=== PATIENT | female | born 1955 | race Caucasian/White ===

== ENCOUNTER 2017-02-10 10:59 | Emergency (ER) | payer MEDICARE, OTHER ==
[2017-02-10] MEDS ORDERED: FENTANYL CITRATE INJ/PF 100 MCG/2 ML AMPUL IV ONE ×2 (12:30→13:47)
--- NOTE | 2017-02-10 13:17 | RADIOLOGY REPORT (SQ) ---
EXAM DESCRIPTION: WRIST LEFT 3 VIEWS COMPLETED DATE/TIME: 02/10/2017 1:05 pm REASON FOR STUDY: fell, wrist pain COMPARISON: None. NUMBER OF VIEWS: Three views. TECHNIQUE: AP, lateral, and oblique radiographic images acquired of the left wrist. LIMITATIONS: None. FINDINGS: MINERALIZATION: Osteopenia. BONES: There is a comminuted, impacted fracture of the distal radius with mild volar angulation. SOFT TISSUES: No soft tissue swelling. No foreign body. OTHER: No other significant finding. IMPRESSION: Radial fracture. TECHNICAL DOCUMENTATION: JOB ID: [id number] [employer]- All Rights Reserved
--- NOTE | 2017-02-10 13:21 | ER Document Report ---
HPI - HPI Patient complains to provider of: left wrist pain Onset: Just prior to arrival Onset/Duration: Sudden Quality of pain: Achy Severity: Moderate Pain Level: 3 Context: Patient presents to the emergency department with left wrist pain. FOOSH injury. Patient reports she fell going to the bathroom. She reports she did not get dizzy, she just slipped and fell. Patient was brought in by EMS and received 40 mcg of fentanyl. Reports denies past medical history of injury to the wrist. Associated Symptoms: None Exacerbated by: Movement Relieved by: Denies Similar symptoms previously: No Recently seen / treated by doctor: No - DERM Skin Color: Normal Past Medical History - General Information source: Patient - Social History Smoking Status: Never Smoker Cigarette use (# per day): No Frequency of alcohol use: None Drug Abuse: None Lives with: Family Family History: Reviewed & Not Pertinent Patient has suicidal ideation: No Patient has homicidal ideation: No - Medical History Medical History: Other - lupus Pulmonary Medical History: Reports: Hx Pneumonia Endocrine Medical History: Reports: Hx Hypothyroidism Renal/ Medical History: Denies: Hx Peritoneal Dialysis Surgical Hx: Negative Vertical Provider Document - CONSTITUTIONAL Agree With Documented VS: Yes Exam Limitations: No Limitations General Appearance: WD/WN, Mild Distress - winces when wrist palpated - INFECTION CONTROL TRAVEL OUTSIDE OF THE [place] IN LAST 30 DAYS: No - HEENT HEENT: Atraumatic, Normocephalic - NECK Neck: Supple - RESPIRATORY Respiratory: No Respiratory Distress O2 Sat by Pulse Oximetry: 98 - CARDIOVASCULAR Cardiovascular: Regular Rate - MUSCULOSKELETAL/EXTREMETIES Musculoskeletal/Extremeties: Tender - left wrist with swelling, ttp, good radial pulse, brisk cap refill Course - Re-evaluation Re-evalutation: 02/10/17 13:42 Patient instructed on fracture, plan of care,splint Patient reports that when she had carpal tunnel surgery done in August she was able to take Tylenol with codeine. Patient orthopedic contacted [facility] and appointment arranged for her. - Vital Signs Vital signs: Temp Pulse Resp BP Pulse Ox 98.1 F 67 16 147/69 H 98 02/10/17 11:09 02/10/17 11:09 02/10/17 11:09 02/10/17 11:09 02/10/17 11:09 - Diagnostic Test Radiology reviewed: Image reviewed, Reports reviewed - impacted fracture distal radius with mild volar angulation Procedures - Immobilization Left Wrist Immobilizer type: Sugar tong, Sling Performed by: PCT Post-Proc Neuro Vasc Exam: Unchanged from pre-exam Alignment checked and good: Yes Discharge - Discharge Clinical Impression: Elevated blood pressure reading Left wrist injury Qualifiers: Encounter type: initial encounter Qualified Code(s): S69.92XA - Unspecified injury of left wrist, hand and finger(s), initial encounter Radial fracture Qualifiers: Encounter type: initial encounter Radius location: distal Fracture type: closed Fracture morphology: unspecified fracture morphology Disposition: HOME, SELF-CARE Instructions: Splint Pending Casting ([facility]), Fractured Radius ([facility]), Acetaminophen with Codeine ([facility]) Additional Instructions: *You have been evaluated for left wrist injury, radial fracture *Maintain the splint *Rest/Ice/Elevate your wrist *Follow up with [facility] February 13 at 1:00 pm *Take medication as prescribed for pain *Return to ED for worsening condition, changes, needs Prescriptions: Acetaminophen with Codeine [Tylenol #3 Tablet] 1 each PO Q4HP PRN #30 tablet PRN Reason: Referrals: ROZ FRANCOIS MD [Primary Care Provider] - Follow up in 1 week [facility] [Provider Group] - 02/13/17 1:00 pm
[2017-02-10] MEDS ORDERED: ONDANSETRON ODT 4 MG TAB (6 TAB/DSPK) PO PRN (13:47)
[2017-02-10 16:07] VITALS: BP 148/89
== END 2017-02-10 15:13 | disposition home or self-care (01) ==
LOC: ER 10:59
PROC: 2W3DX1Z Immobilization of Left Lower Arm using Splint (ICD-10-PCS; principal; 2017-02-10)
DX: S52.92XA Unspecified fracture of left forearm, initial encounter for closed fracture (principal); S62.92XA Unspecified fracture of left hand, initial encounter for closed fracture; S62.609A Fracture of unspecified phalanx of unspecified finger, initial encounter for closed fracture; M25.532 Pain in left wrist; W01.0XXA Fall on same level from slipping, tripping and stumbling without subsequent striking against object, initial encounter
CPT/HCPCS: 29125; 96376; 99283; 96374; 73110; J3010; A9270

== ENCOUNTER 2018-06-28 19:33 | Observation (INO) | payer MEDICARE, OTHER ==
--- NOTE | 2018-06-28 20:31 | RADIOLOGY REPORT (SQ) ---
EXAM DESCRIPTION: ANKLE LEFT COMPLETE COMPLETED DATE/TIME: 06/28/2018 8:21 pm REASON FOR STUDY: fall injury with ? deformity COMPARISON: None. EXAM PARAMETERS: NUMBER OF VIEWS: Three views. TECHNIQUE: AP, lateral and oblique radiographic images acquired of the left ankle. LIMITATIONS: None. FINDINGS: MINERALIZATION: Normal. BONES: Transverse Nondisplaced fracture of the distal fibula- lower lateral malleolus. No other frac ture or dislocation. No worrisome bone lesions. JOINTS: No effusion. SOFT TISSUES: Moderate soft tissue swelling. No radiopaque foreign body. OTHER: No other significant finding. IMPRESSION: Transverse Nondisplaced fracture of the distal fibula- lower lateral malleolus. No othe r fracture or dislocation. TECHNICAL DOCUMENTATION: JOB ID: [id number] [place]-72 2010 [employer]- All Rights Reserved Reading location - IP/workstation name: [email or web address]
--- NOTE | 2018-06-28 20:34 | RADIOLOGY REPORT (SQ) ---
EXAM DESCRIPTION: KNEE RIGHT 4 VIEWS COMPLETED DATE/TIME: 06/28/2018 8:21 pm REASON FOR STUDY: fall injury with swelling COMPARISON: None. EXAM PARAMETERS: NUMBER OF VIEWS: Four views. TECHNIQUE: AP, lateral and both oblique radiographic images acquired of the right knee. LIMITATIONS: None. FINDINGS: MINERALIZATION: Osteopenia. BONES: Possible nondisplaced longitudinal fracture in the lateral body of the patella. No other frac ture or dislocation. No worrisome bone lesions. JOINTS: Small effusion. SOFT TISSUES: No significant soft tissue swelling. No radiopaque foreign body. OTHER: No other significant finding. IMPRESSION: Possible nondisplaced longitudinal fracture in the lateral body of the patella. TECHNICAL DOCUMENTATION: JOB ID: [id number]-72 2010 [employer]- All Rights Reserved Reading location - IP/workstation name: [email or web address]
[2018-06-28] MEDS ORDERED: FENTANYL CITRATE INJ/PF 100 MCG/2 ML AMPUL IV ONE (21:02)
[2018-06-28] MEDS ORDERED: ONDANSETRON HCL INJ/PF 4 MG/2 ML SDV IV PRN (21:03)
--- NOTE | 2018-06-28 21:17 | ER Document Report ---
ED General - General Mode of Arrival: Medic Information source: Patient, Relative - Daughter TRAVEL OUTSIDE OF THE [place] IN LAST 30 DAYS: No - HPI Onset: Just prior to arrival Onset/Duration: Sudden Quality of pain: Sharp, Throbbing <RENEE CRYSTAL - Last Filed: 06/29/18 00:16> <SARAH BRAVOIN - Last Filed: 06/29/18 00:48> - General Chief Complaint: Fall Injury Stated Complaint: KNEE PAIN Time Seen by Provider: 06/28/18 19:57 - HPI Notes: 53-year-old female brought in by ambulance after tripping and falling brought in with positive deformity of her left lateral ankle and her right knee. She is complaining of severe pain in her right knee her left ankle over the fibula. Patient is unable to bear weight on either extremity. She did not hit her head and there was no loss of consciousness. Enroute she was given 100 mcg x1 by the medics and Zofran 4 mg x1. (RENEE CRYSTAL) - Related Data Allergies/Adverse Reactions: hydrochlorothiazide [Hydrochlorothiazide] Allergy (Verified 06/28/18 20:11) morphine [Morphine] Allergy (Verified 06/28/18 20:11) Penicillins Allergy (Verified 06/28/18 20:11) rofecoxib [From Vioxx] Allergy (Verified 06/28/18 20:11) Sulfa (Sulfonamide Antibiotics) Allergy (Verified 06/28/18 20:11) Past Medical History - General Information source: Patient - Social History Smoking Status: Never Smoker Frequency of alcohol use: None Drug Abuse: None Family History: Reviewed & Not Pertinent Patient has suicidal ideation: No Patient has homicidal ideation: No - Past Medical History Cardiac Medical History: Reports: Hx Hypertension Pulmonary Medical History: Reports: Hx Asthma, Hx COPD, Hx Pneumonia Endocrine Medical History: Reports: Hx Hypothyroidism Renal/ Medical History: Denies: Hx Peritoneal Dialysis Musculoskeletal Medical History: Reports Hx Arthritis - RA Past Surgical History: Reports: Hx Hysterectomy, Hx Orthopedic Surgery - L arm <RENEE CRYSTAL - Last Filed: 06/29/18 00:16> Review of Systems - Review of Systems Constitutional: Weakness. denies: Chills, Diaphoresis EENT: No symptoms reported Cardiovascular: No symptoms reported Respiratory: No symptoms reported Gastrointestinal: No symptoms reported Musculoskeletal: Deformity, Leg swelling <RENEE CRYSTAL - Last Filed: 06/29/18 00:16> Physical Exam - General General appearance: Appears well, Anxious In distress: Mild - HEENT Head: Normocephalic Eyes: Normal Conjunctiva: Normal Extraocular movements intact: Yes - Respiratory Respiratory status: No respiratory distress Chest status: Nontender Breath sounds: Normal Chest palpation: Normal - Cardiovascular Rhythm: Regular Heart sounds: Normal auscultation, S1 appreciated, S2 appreciated Murmur: Yes Systolic murmur grade 1-6: 2 Pulses: Normal: Posterior tibial - Bilateral 2+, Dorsalis pedis - Bilateral 2+ - Abdominal Inspection: Normal Distension: No distension Tenderness: Nontender - Extremities General lower extremity: Tender - Exquisitely tender to palpation R knee around patella. Positive TTP L lateral malleolus Knee: Tender, Abrasion, Pain with ROM, Tender joint line - R knee TTP, abrasion noted anterolateral, severe pain with ROM, cannot bear weight, Unable to bear weight. No: Popliteal fossa tender Calf: Normal Ankle: Tender, Deformity, Edema, Limited ROM, Unable to bear weight - L ankle TTP lateral malleolus, edema, mild deformity Foot: Normal - Neurological Sensory: Altered light touch - Pt with normal sensation to light touch R lower extremity, decreased sensation to light touch L lower extremity. <RENEE CRYSTAL - Last Filed: 06/29/18 00:16> - Vital signs Vitals: Temp Pulse Resp BP Pulse Ox 98.2 F 72 24 H 142/89 H 100 06/28/18 19:34 06/28/18 19:34 06/28/18 19:34 06/28/18 19:34 06/28/18 19:34 Course - Laboratory Result Diagrams: 06/28/18 22:55 06/28/18 22:55 <RENEE CRYSTAL - Last Filed: 06/29/18 00:16> - Laboratory Result Diagrams: 06/28/18 22:55 06/28/18 22:55 <MADISON BRAVO - Last Filed: 06/29/18 00:48> - Re-evaluation Re-evalutation: 06/28/18 21:23 XR of distal L extremity shows fibula fx. Radiology read of R knee indicates possible longitudinal patella fx. Questionable lipohemarthrosis R knee. Pt endorses severe pain. Will give fentanyl 50 mcg x 1. 06/28/18 22:42 CT L lower extremity completed. Confirms R non-displaced acute patellar fx 06/28/18 22:47 06/28/18 23:52 Patient was placed in a L ankle stirrup brace and a R knee immobilizer and attempted to ambulate on crutches. Pt had great difficulty ambulating 10 feet and with severe pain and deemed unable to safely ambulate. Pt stated she will not be able to safely ambulate at home. Discussed with Dr. Bravo and best course of action is to admit patient overnight. Consulted with hospitalist, she is concerned about medical management and is going to contact orthopedics. Waiting to speak with her. 06/29/18 00:[address] Hernandez will admit to medical floor. (RENEE CRYSTAL) 06/29/18 00:46 I did evaluate the patient at bedside patient has a x-ray showing a left distal fibula fracture along with a patella fracture on the right. We did apply a ankle stirrup splint and knee immobilizer splint to the left immobilizer to the right leg and supply crutches to the patient patient had a extremely difficult time and walking taking approximately 10 minutes to go less than 10 feet. Because of difficulty in ambulation recommend at this time patient be admitted to the hospital staff for further evaluation. At this time do not see any need for emergent operative management of these fractures hospitalist will consult orthopedics discussed with Dr. Crouch agrees with admission to the floor ( MADISON BRAVO) - Vital Signs Vital signs: Temp Pulse Resp BP Pulse Ox 99.2 F 72 20 158/80 H 99 06/28/18 21:45 06/28/18 21:45 06/28/18 21:45 06/28/18 21:45 06/28/18 21:45 Discharge - Discharge Admitting Provider: Don Hernandez Unit Admitted: Medical Floor <RENEE CRYSTAL - Last Filed: 06/29/18 00:16> <MADISON BRAVO - Last Filed: 06/29/18 00:48> - Discharge Clinical Impression: Inability to ambulate due to knee, Inability to ambulate due to ankle or foot, Fibromyalgia Fracture of distal fibula Qualifiers: Encounter type: initial encounter Fracture type: closed Fracture morphology: unspecified fracture morphology Laterality: left Qualified Code(s): S82.832A - Other fracture of upper and lower end of left fibula, initial encounter for closed fracture Patella fracture Qualifiers: Encounter type: initial encounter Fracture type: closed Fracture morphology: longitudinal Fracture alignment: nondisplaced Laterality: right Qualified Code(s ): S82.024A - Nondisplaced longitudinal fracture of right patella, initial encounter for closed fracture Lupus Qualifiers: Lupus erythematosus form: unspecified Qualified Code(s): L93.0 - Discoid lupus erythematosus Hypertension Qualifiers: Hypertension type: essential hypertension Qualified Code(s): I10 - Essential ( primary) hypertension Condition: Stable Disposition: ADMITTED OBSERVATION
[2018-06-28] MEDS ORDERED: ACETAMINOPHEN 325 MG TABLET PO ONE (21:54)
--- NOTE | 2018-06-28 22:38 | RADIOLOGY REPORT (SQ) ---
EXAM DESCRIPTION: CT LOWER EXTREMITY WITHOUT IV CONTRAST COMPLETED DATE/TME: 06/28/2018 21:09 CLINICAL HISTORY: 63 years, Female, Knee pain This exam was performed according to our departmental dose-optimization program which includes automated exposure control, adjustment of the mA and/or kVp according to patient size and/or use of iterative reconstruction technique where applicable. Findings: There is a mild joint effusion. There is a calcification in the suprapatellar joint effusion medially, measuring 1.3 x 0.7 cm. This may represent a loose body. There are moderate tricompartmental degenerative changes. There is a nondisplaced vertical patellar fracture noted. Significant osteophytes are noted. IMPRESSION: Nondisplaced acute patellar fracture. Moderate degenerative changes with probable loose body calcification in the suprapatellar joint with mild joint effusion.
[2018-06-28] MEDS ORDERED: KETOROLAC TROMETHAMINE INJ/PF 30 MG/1 ML SDV IV ONE (23:09)
[2018-06-28 23:11] LABS: ABSOLUTE BASOPHILS # (AUTO) 0.1 10^3/uL (0.0-0.2); ABSOLUTE EOSINOPHILS # (AUTO) 0.1 10^3/uL (0.0-0.6); ABSOLUTE LYMPHOCYTES (AUTO) 1.6 10^3/uL (0.5-4.7); ABSOLUTE MONOCYTES (AUTO) 0.4 10^3/uL (0.1-1.4); ABSOLUTE NEUT (AUTO) 4.4 10^3/uL (1.7-8.2); EOSINOPHILS % (AUTO) 2.2 % (0-6); HEMATOCRIT 40.3 % (36.0-47.0); HEMOGLOBIN 13.6 g/dL (12.0-15.5); LYMPHOCYTES % (AUTO) 24.7 % (13-45); MEAN CORPUSCULAR HEMOGLOBIN 30.3 pg (27.0-33.4); MEAN CORPUSCULAR HGB CONC 33.9 g/dL (32.0-36.0); MEAN CORPUSCULAR VOLUME 90 fl (80-97); MONOCYTES % (AUTO) 6.3 % (3-13); PLATELET COUNT 234 10^3/uL (150-450); RED CELL DISTRIBUTION WIDTH 13.1 % (11.5-14.0); SEGMENTED NEUTROPHILS % (AUTO) 65.8 % (42-78); TOTAL CELLS COUNTED % (AUTO) 100 %; WHITE BLOOD COUNT 6.6 10^3/uL (4.0-10.5)
[2018-06-28 23:22] LABS: ANION GAP 11 (5-19); BLOOD UREA NITROGEN 15 mg/dL (7-20); CALCIUM 9.2 mg/dL (8.4-10.2); CARBON DIOXIDE 27 mmol/L (22-30); CHLORIDE 104 mmol/L (98-107); GLUCOSE 110 mg/dL (75-110); POTASSIUM 3.6 mmol/L (3.6-5.0); SODIUM 141.6 mmol/L (137-145)
[2018-06-29] MEDS ORDERED: ACETAMINOPHEN 650 MG SUPP.RECT PR PRN (00:30)
[2018-06-29] MEDS ORDERED: MAG HYDROX/AL HYDROX/SIMETH SUSP 30 ML UDCUP PO PRN (00:30)
[2018-06-29] MEDS ORDERED: TEMAZEPAM 15 MG CAPSULE PO PRN (00:30)
[2018-06-29] MEDS ORDERED: PROMETHAZINE HCL 25 MG TABLET PO PRN (00:30)
[2018-06-29] MEDS ORDERED: PROMETHAZINE HCL INJ 25 MG/1 ML VIAL IV PRN ×2 (00:30→13:00)
[2018-06-29] MEDS ORDERED: KETOROLAC TROMETHAMINE INJ/PF 30 MG/1 ML SDV IV PRN ×2 (00:36→13:01)
--- NOTE | 2018-06-29 01:04 | PDOC H&P ---
History of Present Illness Admission Date/PCP: 06/29/2018 ROZ FRANCOIS MD Patient complains of: Status post fall History of Present Illness: EDMUNDO MACIAS is a 63 year old female who comes to the emergency department status post fall. Patient tells me that she came home and saw a pumpkin out on the floor in the porch, when she went out the light was off and she is stepped into the pumpkin with her left lower lower extremity twisting it and finally falling onto her right knee. She denies before the fall any dizziness, lightheadedness, nausea, vomiting, headaches. She hit her head but she did not have any loss of consciousness. EMS was called and in route given 100 mcg of fentanyl and 4 mg of Zofran. In the emergency department left ankle x-ray shows transverse nondisplaced fracture distal fibula, right knee x-ray shows a possible nondisplaced longitudinal fracture in the lateral body of patella. Subsequently a right CT of the knee was done showing nondisplaced acute patella fracture with mild joint effusion, questionable lipohemarthrosis. Patient placed in a left ankle stirrup up brace and right knee immobilizer and attempted to ambulate her with crutches but was unsuccessful, after 10 feet she had severe pain and being unable to safely ambulate. Orthopedist was not contacted immediately as it is felt that this is not a surgical case. Hospitalist was contacted for admission. Past Medical History Cardiac Medical History: Reports: Hypertension Pulmonary Medical History: Reports: Asthma, Chronic Obstructive Pulmonary Disease (COPD), Pneumonia Endocrine Medical History: Reports: Hypothyroidism GI Medical History: Reports: Gastroesophageal Reflux Disease Musculoskeltal Medical History: Reports: Arthritis - RA, Fibromyalgia, Other - Rheumatoid arthritis Hematology: Reports: Other Hematology History Note: Systemic lupus erythematosus Past Surgical History Past Surgical History: Reports: Hysterectomy, Orthopedic Surgery - L arm Social History Information Source: Patient Smoking Status: Never Smoker Frequency of Alcohol Use: None Hx Recreational Drug Use: No Hx Prescription Drug Abuse: No Past Social History Note: Lives with her and her grandson as she has custody of him. Family History Family History: Reviewed & Not Pertinent Parental Family History Reviewed: Yes Children Family History Reviewed: NA Sibling(s) Family History Reviewed.: NA Medication/Allergy Home Medications: Acetaminophen with Codeine [Tylenol #3 Tablet] 1 each PO Q4HP PRN #30 tablet Allergies/Adverse Reactions: hydrochlorothiazide [Hydrochlorothiazide] Allergy (Verified 06/28/18 20:11) morphine [Morphine] Allergy (Verified 06/28/18 20:11) Penicillins Allergy (Verified 06/28/18 20:11) rofecoxib [From Vioxx] Allergy (Verified 06/28/18 20:11) Sulfa (Sulfonamide Antibiotics) Allergy (Verified 06/28/18 20:11) Review of Systems Review of Systems: As outlined in the HPI, others negative Physical Exam Vital Signs: Temp Pulse Resp BP Pulse Ox 99.2 F 72 20 158/80 H 99 06/28/18 21:45 06/28/18 21:45 06/28/18 21:45 06/28/18 21:45 06/28/18 21:45 Intake & Output 06/27/18 06/28/18 06/29/18 07:59 06:59 06:59 Weight 95.254 kg Additional comments: General appearance: Well-developed, well-nourished, alert and cooperative, and appears to be in no acute distress Head: Normocephalic Eyes: PEERL, EOMI, vision is grossly intact. Ears: External auditory canal and tympanic membranes clear, hearing grossly intact. Nose: No nasal discharge. Throat: Oral cavity and pharynx normal. No inflammation, swelling, exudate or lesions. Neck: Neck supple, nontender without lymphadenopathy, masses or thyromegaly. Cardiac: Normal S1 and S2. No S3, S4 or murmurs. Rhythm is regular. There is no peripheral edema, cyanosis or pallor. Extremities are warm and well perfused. Capillary refill is less than 2 seconds. No carotid bruits. Lungs: Clear to auscultation and percussion without rales, rhonchi, wheezing or diminished breath sounds. Not using accessory muscles. Abdomen: Positive bowel sounds. Soft. Nondistended, nontender. No guarding or rebound. No masses. No hepatosplenomegaly Extremities: Right knee: Tender, abrasion noted anterolateral, severe pain with R OM, could not bear weight. Left ankle: Tender to palpation with mild edema and mild deformity. Neurological: Cranial nerves II through XII grossly intact. Strength and sensation symmetric and intact throughout. Reflexes 2+ throughout. Skin: Skin normal color, texture and turgor , warm and dry. Psychiatric: The mental examination revealed the patient was oriented to person , place, and time. The patient was able to demonstrate good judgment on recent , without hallucinations, abnormal affect or abnormal behaviors. Results Laboratory Results: 06/28/18 22:55 06/28/18 22:55 06/28/18 06/28/18 22:55 22:55 WBC 6.6 RBC 4.50 Hgb 13.6 Hct 40.3 MCV 90 MCH 30.3 MCHC 33.9 RDW 13.1 Plt Count 234 Seg Neutrophils % 65.8 Lymphocytes % 24.7 Monocytes % 6.3 Eosinophils % 2.2 Basophils % 1.0 Absolute Neutrophils 4.4 Absolute Lymphocytes 1.6 Absolute Monocytes 0.4 Absolute Eosinophils 0.1 Absolute Basophils 0.1 Sodium 141.6 Potassium 3.6 Chloride 104 Carbon Dioxide 27 Anion Gap 11 BUN 15 Creatinine 0.87 Est GFR ( Amer) > 60 Est GFR (Non-Af Amer) > 60 Glucose 110 Calcium 9.2 Impressions: Ankle X-Ray 06/28/18 19:43 IMPRESSION: Transverse Nondisplaced fracture of the distal fibula- lower lateral malleolus. No other fracture or dislocation. Knee X-Ray 06/28/18 19:43 IMPRESSION: Possible nondisplaced longitudinal fracture in the lateral body of the patella. Lower Extremity CT 06/28/18 21:09 IMPRESSION: Nondisplaced acute patellar fracture. Moderate degenerative changes with probable loose body calcification in the suprapatellar joint with mild joint effusion. 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 Found with left distal fibular fracture and lower lateral malleolus as well as nondisplaced right patella fracture with a small joint effusion. In the emergency department attempted to walk her with right knee and left lower extremity braces but patient has intolerable pain. We will keep the patient under observation overnight for orthopedics consult and recommendation as these lesions seems to be nonsurgical and physical therapy evaluation. IV/p.o. pain medications place as needed as well as antiemetics as needed. (2) Fracture of distal fibula Qualifiers: Encounter type: initial encounter Fracture type: closed Fracture morphology: unspecified fracture morphology Laterality: left Qualified Code( s): S82.832A - Other fracture of upper and lower end of left fibula, initial encounter for closed fracture Is this a current diagnosis for this admission?: Yes Plan: As above. Tells me she feels better with the brace on her left lower extremity (3) Patella fracture Qualifiers: Encounter type: initial encounter Fracture type: closed Fracture morphology: longitudinal Fracture alignment: nondisplaced Laterality: right Qualified Code(s): S82.024A - Nondisplaced longitudinal fracture of right patella, initial encounter for closed fracture Is this a current diagnosis for this admission?: Yes Plan: As above. Cannot tolerate right knee brace. (4) Hypertension Qualifiers: Hypertension type: essential hypertension Qualified Code(s): I10 - Essential (primary) hypertension Is this a current diagnosis for this admission?: Yes Plan: Blood pressure 150/80. Continue with home antihypertensive medications. (5) Lupus Qualifiers: Lupus erythematosus form: unspecified Qualified Code(s): L93.0 - Discoid lupus erythematosus Is this a current diagnosis for this admission?: Yes Plan: Patient is on [employer] (6) COPD (chronic obstructive pulmonary disease) Is this a current diagnosis for this admission?: Yes Plan: No current respiratory symptoms, continue with home bronchodilators. (7) DVT prophylaxis Is this a current diagnosis for this admission?: Yes Plan: Heparin - Time Time Spent: 50 to 70 Minutes - Plan Summary Plan Summary: Case discussed with patient and her who is at the bedside, agree with plan.
[2018-06-29] MEDS: ACETAMINOPHEN WITH CODEINE #3 TABLET PO PRN ×4 (02:17→20:06)
[2018-06-29] MEDS: HEPARIN SOD (PORCINE) 5,000 UNIT/ML 1 ML SYRINGE SUBCUT SCH ×3 (06:17→21:59)
--- NOTE | 2018-06-29 12:22 | PDOC CONSULTATION ---
Consultation Consult Date: 06/29/18 Consult reason:: Left lateral malleolus fracture and right patella fracture History of Present Illness Admission Date/PCP: 06/29/18 00:37 ROZ FRANCOIS MD Patient complains of: Left ankle pain and right knee pain status post fall History of Present Illness: EDMUNDO MACIAS is a 63 year old female with osteo-porosis. She had a mechanical fall twisting her left ankle and falling directly onto her right knee. Immediately she had pain in both the ankle and the right knee and was brought to the hospital for evaluation. She denies any head injury or loss of consciousness. Only complains of swelling and pain of the mentioned extremities above. Describes the pain 5 out of 5 for both joints and decreased range of motion secondary to pain. No previous surgeries or injuries to those extremities. Orthopedic consulted after x-rays revealed nondisplaced lateral malleolus ankle fracture in the left and a nondisplaced right patella fracture. Denies any numbness tingling or paresthesias With Past Medical History Cardiac Medical History: Reports: Hypertension Pulmonary Medical History: Reports: Asthma, Chronic Obstructive Pulmonary Disease (COPD), Pneumonia EENT Medical History: Reports: Other Endocrine Medical History: Reports: Hypothyroidism GI Medical History: Reports: Gastroesophageal Reflux Disease Musculoskeltal Medical History: Reports: Arthritis, Fibromyalgia, Other - Rheumatoid arthritis Hematology: Reports: Other Past Surgical History Past Surgical History: Reports: Hysterectomy, Orthopedic Surgery - L arm Social History Smoking Status: Never Smoker Frequency of Alcohol Use: None Hx Recreational Drug Use: No Drugs: None Hx Prescription Drug Abuse: No Family History Family History: Reviewed & Not Pertinent Parental Family History Reviewed: No Children Family History Reviewed: No Sibling(s) Family History Reviewed.: No Medication/Allergy Home Medications: Aspirin [Aspirin EC] 81 mg PO DAILY 06/29/18 Budesonide/Formoterol Fumarate [Symbicort 160-4.5 Mcg Inhaler] 2 puff IH BID 01/09 Dexlansoprazole [Dexilant 60 mg Capsule] 60 mg PO DAILY 06/29/18 Duloxetine HCl [Cymbalta] 30 mg PO DAILY 06/29/18 Ergocalciferol (Vitamin D2) [Vitamin D2] 50,000 unit PO TU@1000 06/29/18 Furosemide [Lasix 20 mg Tablet] 20 mg PO DAILY 06/29/18 Levothyroxine Sodium [Synthroid 0.112 mg Tablet] 0.112 mg PO DAILY 06/29/18 Potassium Chloride [Klor-Con 10 Meq Capsule ER] 10 meq PO DAILY 06/29/18 Allergies/Adverse Reactions: hydrochlorothiazide [Hydrochlorothiazide] Allergy (Verified 06/29/18 09:53) SWELLING morphine [Morphine] Allergy (Verified 06/29/18 09:53) Hives Penicillins Allergy (Verified 06/29/18 09:53) Hives rofecoxib [From Vioxx] Allergy (Verified 06/29/18 09:53) SWELLING Sulfa (Sulfonamide Antibiotics) Allergy (Verified 06/29/18 09:53) THROAT ITCHING & BURNING Review of Systems Review of Systems: Constitutional: [PRESENT: as per HPI. ABSENT: chills, fever(s), headache(s), weight gain, weight loss] Eyes: [ABSENT: visual disturbances] Ears: [ABSENT: hearing changes] Cardiovascular: [ABSENT: chest pain, dyspnea on exertion, edema, orthropnea, palpitations] Respiratory: [ABSENT: cough, hemoptysis] Gastrointestinal: [ABSENT: abdominal pain, constipation, diarrhea, hematemesis, hematochezia, nausea, vomiting] Genitourinary: [ABSENT: dysuria, hematuria] Musculoskeletal: See HPI Integumentary: [ABSENT: rash, wounds] Neurological: [ABSENT: abnormal gait, abnormal speech, confusion, dizziness, focal weakness, syncope] Psychiatric: [ABSENT: anxiety, depression, homicidal ideation, suicidal ideation ] Endocrine: [ABSENT: cold intolerance, heat intolerance, menstrual abnormalities , polydipsia, polyuria] Hematologic/Lymphatic: [ABSENT: easy bleeding, easy bruising, lymphadenopathy] Physical Exam Vital Signs: Temp Pulse Resp BP Pulse Ox 36.9 C 72 16 139/68 H 96 06/29/18 07:17 06/29/18 07:17 06/29/18 07:17 06/29/18 07:17 06/29/18 07:17 Intake & Output 06/28/18 06/29/18 06/30/18 06:59 06:59 06:59 Intake Total 336 Balance 336 Weight 95.2 kg General appearance: PRESENT: no acute distress Head exam: PRESENT: atraumatic, normocephalic Eye exam: PRESENT: EOMI, other - Round symmetric pupils Ear exam: PRESENT: normal external ear exam. ABSENT: bleeding, drainage Mouth exam: PRESENT: neck supple Neck exam: ABSENT: lymphadenopathy, thyromegaly Respiratory exam: PRESENT: symmetrical, unlabored. ABSENT: accessory muscle use , tachypnea, wheezes Cardiovascular exam: PRESENT: RRR Pulses: PRESENT: normal dorsalis pedis pul Vascular exam: PRESENT: normal capillary refill GI/Abdominal exam: PRESENT: soft - 100. ABSENT: distended, tenderness Neurological exam: PRESENT: alert, awake, oriented to person, oriented to place , oriented to time, oriented to situation Psychiatric exam: PRESENT: appropriate affect, normal mood Skin exam: PRESENT: abrasion - Over the right knee, intact, normal color. ABSENT: skin tears - 60 Adult Front & Back Image: 1 - Superficial abrasion of the right knee. Tender palpation over the patella. Swelling present but not remarkable. Decreased range of motion pain. Neurovascular intact distally. 2 - Left ankle swelling laterally with tenderness over the lateral malleolus. Some crepitus with palpation. Decreased range of motion second to pain. Neurovascular intact distally Results Impressions: Ankle X-Ray 06/28/18 19:43 IMPRESSION: Transverse Nondisplaced fracture of the distal fibula- lower lateral malleolus. No other fracture or dislocation. Knee X-Ray 06/28/18 19:43 IMPRESSION: Possible nondisplaced longitudinal fracture in the lateral body of the patella. Lower Extremity CT 06/28/18 21:09 IMPRESSION: Nondisplaced acute patellar fracture. Moderate degenerative changes with probable loose body calcification in the suprapatellar joint with mild joint effusion. Status: Image reviewed by me Assessment & Plan - Diagnosis (1) Fracture of distal fibula Qualifiers: Encounter type: initial encounter Fracture type: closed Fracture morphology: unspecified fracture morphology Laterality: left Qualified Code( s): S82.832A - Other fracture of upper and lower end of left fibula, initial encounter for closed fracture Is this a current diagnosis for this admission?: Yes Plan: Displaced left distal fibula fracture. Transverse under the mortise. Recommend protected weightbearing with walking and ice and elevate when not ambulating. Continue the Aircast until she sees us in the office where we will apply a walking boot. (2) Patella fracture Qualifiers: Encounter type: initial encounter Fracture type: closed Fracture morphology: longitudinal Fracture alignment: nondisplaced Laterality: right Qualified Code(s): S82.024A - Nondisplaced longitudinal fracture of right patella, initial encounter for closed fracture Is this a current diagnosis for this admission?: Yes Plan: Nondisplaced lateral facet fracture of the patella on the right knee. is a longitudinal fracture of the lateral facet. No step-off. Patient can ambulate or weight-bear as tolerated with the right lower extremity but unable and restricted from doing range of motion due to the fracture. When she ambulates she is required to use the knee immobilizer. She may loosen or remove the knee immobilizer when and the right knee is straight. Recommend using a walker for ambulation. - Plan Summary Plan Summary: Again protected weightbearing left lower extremity with splint on. Weight-bear as tolerated of the right knee with a knee immobilizer on. Unable to do range of motion due to the fracture. Recommending physical therapy but she most likely will require a stint and rehab due to both extremities being fractured. Continue pain control and DVT prophylaxis.
[2018-06-29] MEDS ORDERED: ONDANSETRON HCL INJ/PF 4 MG/2 ML SDV IV PRN (13:30)
[2018-06-29] MEDS: KETOROLAC TROMETHAMINE INJ/PF 30 MG/1 ML SDV IV PRN ×2 (15:16→21:59)
[2018-06-30] MEDS: HEPARIN SOD (PORCINE) 5,000 UNIT/ML 1 ML SYRINGE SUBCUT SCH ×3 (06:04→21:25)
[2018-06-30] MEDS: KETOROLAC TROMETHAMINE INJ/PF 30 MG/1 ML SDV IV PRN ×3 (06:07→21:27)
[2018-06-30] MEDS: ACETAMINOPHEN WITH CODEINE #3 TABLET PO PRN ×3 (08:26→23:15)
--- NOTE | 2018-06-30 10:19 | PDOC H&P ---
History of Present Illness Admission Date/PCP: 06/29/18 00:37 ROZ FRANCOSI MD Patient complains of: Left ankle pain and difficulty with mobility History of Present Illness: LANDY PETERSON is a 63-year-old female with past medical history of hypertension , asthma, COPD, pneumonia, hypothyroidism, GERD, rheumatoid arthritis, fibromyalgia, systemic lupus erythematosus, hysterectomy, and left wrist ORIF admitted to [facility] on 06/29/2018 status post fall from standing height at home during which she slipped on a small pumpkin that had landed at the edge of her doorstep causing her to twist her left lower extremity and fall onto her right knee. X-rays/CT imaging demonstrated a transverse nondisplaced fracture of the distal fibula on the left and a nondisplaced acute patellar fracture with mild joint effusion and questionable lipohemarthrosis of the right knee. Orthopedic surgery was not contacted immediately due to the likely nonoperative nature of this case, but the patient had significant difficulty with ambulation using crutches and a knee immobilizer on the right. Therefore, the patient was evaluated by orthopedic surgery and recommended protected weightbearing with walking (toe-touch weightbearing) and ice and elevation when not ambulating on the left with continued Aircast until she is seen in the office for application of a walking boot as well as weightbearing as tolerated with a knee immobilizer on the right lower extremity. The patient is allowed to loosen or remove the knee immobilizer when she is in bed and the right knee is straight. Physical medicine and rehabilitation consultation was requested to evaluate the patient for admission to acute inpatient rehabilitation. Today, the patient was seen and examined with her at bedside. She complains of continued left ankle pain and admits that she confused the weightbearing restrictions and placed all of her weight through her left ankle when attempting to go to the bathroom. Her left ankle has subsequently become swollen and warm. Additionally, she admits that she does have arthritis related to her lupus, and she occasionally requires the use of a rolling walker for ambulation. However, she was active and independent otherwise prior to this injury. Her last bowel movement was 2 days ago, and she denies trouble with urination. Past Medical History Cardiac Medical History: Reports: Hypertension Pulmonary Medical History: Reports: Asthma, Chronic Obstructive Pulmonary Disease (COPD), Pneumonia EENT Medical History: Reports: Other Endocrine Medical History: Reports: Hypothyroidism GI Medical History: Reports: Gastroesophageal Reflux Disease Musculoskeltal Medical History: Reports: Arthritis, Fibromyalgia, Other - Rheumatoid arthritis Hematology: Reports: Other Past Surgical History Past Surgical History: Reports: Hysterectomy, Orthopedic Surgery - L arm Social History Smoking Status: Never Smoker Frequency of Alcohol Use: None Hx Recreational Drug Use: No Drugs: None Hx Prescription Drug Abuse: No Past Social History Note: Landy Peterson lives with her , daughter, and 3 young children in a 1 level home with 1 steps to enter and 0 steps to the bedroom and bathroom. She is a retired schoolteacher, does not smoke, does not drink alcohol, and does not use drugs. Prior Functional Status: Active and independent with mobility and all ADLs. Ambulates with a rolling walker occasionally. Current Functional Status: Per therapy notes, the patient currently requires standby assistance for bed mobility, minimal assistance for 2 people for transfers, and minimum assistance for ambulation 20 feet with a rolling walker. Occupational therapy evaluation is pending. Family History: Reviewed and oncontributory to the current presentation. Family History Family History: Reviewed & Not Pertinent Parental Family History Reviewed: Yes Children Family History Reviewed: Yes Sibling(s) Family History Reviewed.: Yes Medication/Allergy Home Medications: Aspirin [Aspirin EC] 81 mg PO DAILY 06/29/18 Budesonide/Formoterol Fumarate [Symbicort 160-4.5 Mcg Inhaler] 2 puff IH BID 01/09 Dexlansoprazole [Dexilant 60 mg Capsule] 60 mg PO DAILY 06/29/18 Duloxetine HCl [Cymbalta] 30 mg PO DAILY 06/29/18 Ergocalciferol (Vitamin D2) [Vitamin D2] 50,000 unit PO TU@1000 06/29/18 Furosemide [Lasix 20 mg Tablet] 20 mg PO DAILY 06/29/18 Levothyroxine Sodium [Synthroid 0.112 mg Tablet] 0.112 mg PO DAILY 06/29/18 Potassium Chloride [Klor-Con 10 Meq Capsule ER] 10 meq PO DAILY 06/29/18 Allergies/Adverse Reactions: hydrochlorothiazide [Hydrochlorothiazide] Allergy (Verified 06/29/18 09:53) SWELLING morphine [Morphine] Allergy (Verified 06/29/18 09:53) Hives Penicillins Allergy (Verified 06/29/18 09:53) Hives rofecoxib [From Vioxx] Allergy (Verified 06/29/18 09:53) SWELLING Sulfa (Sulfonamide Antibiotics) Allergy (Verified 06/29/18 09:53) THROAT ITCHING & BURNING Review of Systems Review of Systems: Constitutional: No fevers, chills, sweats, weight loss Eye: No recent visual problems, no blurry vision, no double vision ENMT: No ear pain, nasal congestion, sore throat Respiratory: No shortness of breath, cough, sputum production Cardiovascular: No chest pain, palpitations, syncope Gastrointestinal: No nausea, vomiting, diarrhea, abdominal pain Genitourinary: No hematuria, dysuria, flank or suprapubic pain Kalyan/Lymph: Negative for bruising tendency, swollen lymph glands Endocrine: Negative for excessive thirst, excessive hunger, extreme fatigue Musculoskeletal: Positive for left ankle and right knee pain as well as resulting difficulty with mobility. Integumentary: No rash, pruritus, abrasions Neurologic: No headaches, numbness, speech problems. Positive for focal weakness of bilateral lower extremity secondary to pain. Psychiatric: No anxiety, depression Physical Exam Vital Signs: Temp Pulse Resp BP Pulse Ox 98.4 F 71 15 163/87 H 98 06/30/18 07:57 06/30/18 07:57 06/30/18 07:57 06/30/18 07:57 06/30/18 07:57 Intake & Output 06/29/18 06/30/18 07/01/18 06:59 06:59 06:59 Intake Total 336 1409 Balance 336 1409 Weight 95.2 kg Exam: General: Awake and Alert. No acute distress. Resting comfortably in bed with her at bedside. Head: Normocephalic. Atraumatic. Eyes: Pupils equal, round, and reactive to light. EOMI. Sclera white. Ears: No drainage noted. Nose: Nares normal & without exudate. Oropharynx: Moist mucous membranes. Neck: Supple movements. Cardiovascular: Regular rate & rhythm. No murmurs, rubs, or gallops appreciated. Pulmonary: Lungs clear to auscultation bilaterally. No increased work of breathing. Gastrointestinal: Abdomen soft, non-tender, non-distended. Normoactive bowel sounds. Skin: Texture and turgor normal. Warm and dry. Psychiatric: Judgement and insight appear to be good. Patient is oriented to date, location, and situation. Affect appropriate. Extremities: The right lower extremity is in a knee immobilizer. The left ankle is edematous and warm to touch and in an Aircast. Neurological: CN III-XII grossly intact. Sensation to light touch is grossly intact. Tone is normal. Proprioception is normal. No Palencia's. Speech is fluent with good content and without dysarthria. Muscle Strength: Full 5/5 strength in all major muscle groups of the upper extremities, although she does wince in pain with resisted shoulder abduction due to her arthritis. She demonstrates 0/5 strength of right hip flexors secondary to pain in the right lower extremity. The right knee flexors/ extensors were not tested due to immobilizer in place. She has 5/5 strength of right ankle and toe dorsiflexors/plantar flexors. She has 3/5 strength of left hip and knee flexors/extensors, and the left ankle dorsiflexors/plantar flexors were not tested. Results Impressions: Ankle X-Ray 06/28/18 19:43 IMPRESSION: Transverse Nondisplaced fracture of the distal fibula- lower lateral malleolus. No other fracture or dislocation. Knee X-Ray 06/28/18 19:43 IMPRESSION: Possible nondisplaced longitudinal fracture in the lateral body of the patella. Lower Extremity CT 06/28/18 21:09 IMPRESSION: Nondisplaced acute patellar fracture. Moderate degenerative changes with probable loose body calcification in the suprapatellar joint with mild joint effusion. Assessment & Plan - Plan Summary Plan Summary: Assessment and Plan: 63-year-old female with multiple traumatic lower extremity fractures secondary to mechanical fall being treated nonoperatively. 1. Gait and ADL Dysfunction secondary to multiple traumatic lower extremity fracture - Continue PT and OT to maximize mobility, safety, endurance, and self-care. 2. Left fibular fracture - Recommended toe-touch weightbearing on the left lower extremity by orthopedic surgery - The patient did have an episode of placing full weight on that ankle due to confusion about weightbearing restrictions, so repeat x-rays are being obtained to ensure no further displacement or necessary intervention - Pain control per hospitalist medicine 3. Right patellar fracture - Weightbearing as tolerated on the right lower extremity with a knee immobilizer in place - The knee immobilizer while in bed when the knee is straight - Pain control per hospitalist medicine 4. SLE/rheumatoid arthritis - Comorbidity impacting the patient's rehabilitation course - Resume patient's home regimen as appropriate 5. Hypertension - Acutely elevated secondary to pain - Continue management per hospitalist medicine 6. Disposition - Based on the patient's diagnosis, medical co-morbidities, and current functional status, she is a good candidate for acute inpatient rehabilitation as she would benefit from 3 hours per day of intensive therapies in at least 2 disciplines under the close medical supervision of a physician. The patient is expected to make significant gains in a relatively short period of time to the point that she can safely be discharged home with supervision and assistance from family. The patient was active and independent prior to admission despite her rheumatoid arthritis impacting her gait and necessitating the use of a rolling walker intermittently. Now, the patient is severely limited in her mobility and ADL tasks due to her recent fractures and weightbearing restrictions. She requires significant assistance to maintain safety and complete her necessary mobility and ADL tasks in a timely manner. Factoring in her current functional status, she is not safe to discharge home with the level of assistance that she has available, namely her who works full-time. Patient would benefit him a high intensity short course of rehabilitation overseen by rehabilitation physician due to her multiple medical comorbidities that may impact her rehabilitation course, including her SLE, rheumatoid arthritis, COPD, and fibromyalgia. Barring any unforeseen events or complications, there is a plan to admit the patient to acute inpatient rehabilitation at [facility] in [place] on 07/01/2018. This case was discussed with the patient's acute care therapists, nurse on the floor, discharge planners, and clinical rehabilitation liaison at [facility]. Thank you for allowing us to participate in the care of this patient. Please call with any questions. A total of 80 minutes was spent on [id number] communication with the patient and coordination of care.
--- NOTE | 2018-06-30 11:59 | RADIOLOGY REPORT (SQ) ---
EXAM DESCRIPTION: ANKLE LEFT COMPLETE COMPLETED DATE/TIME: 06/30/2018 11:49 am REASON FOR STUDY: left ankle swolen, please compare to prior xray COMPARISON: 06/28/2018 NUMBER OF VIEWS: Three views. TECHNIQUE: AP, lateral, and oblique radiographic images acquired of the left ankle. LIMITATIONS: None. FINDINGS: Unchanged nondisplaced transverse fracture distal fibula inferior to the mortise. No othe r fracture identified. IMPRESSION: Unchanged nondisplaced fracture distal fibula. TECHNICAL DOCUMENTATION: JOB ID: [id number] [employer]- All Rights Reserved Reading location - IP/workstation name: [email or web address]
--- NOTE | 2018-06-30 14:19 | PDOC PROGRESS REPORT ---
Subjective Progress Note for:: 06/30/18 Subjective:: Still with pain left verbalized area and right knee. She called Tylenol with Codeine which is helping. Denies fever or chills, no chest pain or shortness of breath or palpitation. She is looking forward to going to rehab and trying to walk. Reason For Visit: INTRACTABLE LOWER EXTREMITIES PAIN Physical Exam Vital Signs: Temp Pulse Resp BP Pulse Ox 98.4 F 71 15 163/87 H 98 06/30/18 07:57 06/30/18 07:57 06/30/18 07:57 06/30/18 07:57 06/30/18 07:57 Intake & Output 06/29/18 06/30/18 07/01/18 06:59 06:59 06:59 Intake Total 336 1409 Balance 336 1409 Weight 95.2 kg GENERAL: Well-developed, well-nourished female, no acute distress HEENT: Normocephalic/atraumatic NECK supple, no JVD CARDIOVASCULAR: RRR, normal S1-S2 LUNGS: CTA bilaterally ABDOMEN: Soft, NT, NL bowel sounds EXTREMITIES: No edema, clubbing, cyanosis; right knee and left ankle immobilizers in place NEUROLOGICAL: Alert, oriented x 3, grossly nonfocal Results Impressions: Knee X-Ray 06/28/18 19:43 IMPRESSION: Possible nondisplaced longitudinal fracture in the lateral body of the patella. Lower Extremity CT 06/28/18 21:09 IMPRESSION: Nondisplaced acute patellar fracture. Moderate degenerative changes with probable loose body calcification in the suprapatellar joint with mild joint effusion. Ankle X-Ray 06/30/18 00:00 IMPRESSION: Unchanged nondisplaced fracture distal fibula. Assessment & Plan - Diagnosis (1) Fracture of fibula, distal, left, closed Qualifiers: Encounter type: subsequent encounter Is this a current diagnosis for this admission?: Yes (2) Fracture of right patella Is this a current diagnosis for this admission?: Yes (3) Lupus Qualifiers: Lupus erythematosus form: unspecified Qualified Code(s): L93.0 - Discoid lupus erythematosus Is this a current diagnosis for this admission?: Yes (4) Gait disturbance Is this a current diagnosis for this admission?: Yes (5) Hypertension Qualifiers: Hypertension type: essential hypertension Qualified Code(s): I10 - Essential (primary) hypertension Is this a current diagnosis for this admission?: Yes (6) COPD (chronic obstructive pulmonary disease) Is this a current diagnosis for this admission?: Yes - Plan Summary Plan Summary: Patient is medically stable. Will continue management. Orthopedic and physiatry specialists notes/evaluations appreciated. We will continue physical therapy. Plan for likely discharge to rehab in a.m./when bed available. Follow-up CBC and Chem-7 in a.m.
[2018-07-01 00:07] VITALS: BP 146/61
[2018-07-01] MEDS: HEPARIN SOD (PORCINE) 5,000 UNIT/ML 1 ML SYRINGE SUBCUT SCH (06:07)
[2018-07-01] MEDS: KETOROLAC TROMETHAMINE INJ/PF 30 MG/1 ML SDV IV PRN (06:11)
[2018-07-01 06:35] LABS: ABSOLUTE EOSINOPHILS # (AUTO) 0.2 10^3/uL (0.0-0.6); ABSOLUTE LYMPHOCYTES (AUTO) 1.4 10^3/uL (0.5-4.7); ABSOLUTE MONOCYTES (AUTO) 0.3 10^3/uL (0.1-1.4); ABSOLUTE NEUT (AUTO) 1.8 10^3/uL (1.7-8.2); BASOPHILS % (AUTO) 0.7 % (0-2); EOSINOPHILS % (AUTO) 5.1 % (0-6); HEMATOCRIT 36.2 % (36.0-47.0); HEMOGLOBIN 12.5 g/dL (12.0-15.5); LYMPHOCYTES % (AUTO) 37.1 % (13-45); MEAN CORPUSCULAR HEMOGLOBIN 30.6 pg (27.0-33.4); MEAN CORPUSCULAR HGB CONC 34.5 g/dL (32.0-36.0); MEAN CORPUSCULAR VOLUME 89 fl (80-97); MONOCYTES % (AUTO) 7.7 % (3-13); PLATELET COUNT 185 10^3/uL (150-450); RED BLOOD COUNT 4.07 10^6/uL (3.72-5.28); RED CELL DISTRIBUTION WIDTH 12.7 % (11.5-14.0); SEGMENTED NEUTROPHILS % (AUTO) 49.4 % (42-78); TOTAL CELLS COUNTED % (AUTO) 100 %; WHITE BLOOD COUNT 3.7 10^3/uL (4.0-10.5)
[2018-07-01 06:54] LABS: ANION GAP 8 (5-19); BLOOD UREA NITROGEN 14 mg/dL (7-20); CALCIUM 8.9 mg/dL (8.4-10.2); CARBON DIOXIDE 29 mmol/L (22-30); CHLORIDE 105 mmol/L (98-107); GLUCOSE 93 mg/dL (75-110); POTASSIUM 4.3 mmol/L (3.6-5.0); SODIUM 142.2 mmol/L (137-145)
[2018-07-01] MEDS: ACETAMINOPHEN WITH CODEINE #3 TABLET PO PRN (09:04)
--- NOTE | 2018-07-01 09:55 | PDOC TRANSFER SUMMARY ---
General Admission Date/PCP: 06/29/18 00:37 ROZ FRANCOIS MD Admission Date: 06/29/18 Transfer Date: 07/01/18 - Transfer Diagnosis (1) Fracture of fibula, distal, left, closed Is this a current diagnosis for this admission?: Yes (2) Fracture of right patella Is this a current diagnosis for this admission?: Yes (3) Lupus Is this a current diagnosis for this admission?: Yes (4) Gait disturbance Is this a current diagnosis for this admission?: Yes (5) Hypertension Is this a current diagnosis for this admission?: Yes (6) COPD (chronic obstructive pulmonary disease) Is this a current diagnosis for this admission?: Yes - Transfer Medications Home Medications: Aspirin [Aspirin EC] 81 mg PO DAILY 06/29/18 Budesonide/Formoterol Fumarate [Symbicort 160-4.5 Mcg Inhaler] 2 puff IH BID 01/09 Dexlansoprazole [Dexilant 60 mg Capsule] 60 mg PO DAILY 06/29/18 Duloxetine HCl [Cymbalta] 30 mg PO DAILY 06/29/18 Ergocalciferol (Vitamin D2) [Vitamin D2] 50,000 unit PO TU@1000 06/29/18 Furosemide [Lasix 20 mg Tablet] 20 mg PO DAILY 06/29/18 Levothyroxine Sodium [Synthroid 0.112 mg Tablet] 0.112 mg PO DAILY 06/29/18 Potassium Chloride [Klor-Con 10 Meq Capsule ER] 10 meq PO DAILY 06/29/18 Transfer Medications: Current Medications Acetaminophen (Tylenol 650 Mg Supp) 650 mg HI Q4HP PRN PRN Reason: FOR PAIN OR TEMP Stop: 07/29/18 00:29 Acetaminophen/Codeine Phosphate (Tylenol #3 Tablet) 2 each PO Q4HP PRN PRN Reason: MILD PAIN Stop: 07/06/18 00:35 Last Admin: 07/01/18 09:04 Dose: 2 each Al Hydrox/Mg Hydrox/Simethicone (Maalox Plus Susp 30 Udcup) 30 ml PO Q6HP PRN PRN Reason: HEARTBURN Stop: 07/29/18 00:29 Heparin Sodium (Porcine) (Heparin Inj 5,000 Units/Ml 1 Ml Syringe) 5,000 unit SUBCUT Q8 JACKY Stop: 07/29/18 05:59 Last Admin: 07/01/18 06:07 Dose: 5,000 unit Ketorolac Tromethamine (Toradol Inj/Pf 30 Mg/1 Ml Sdv) 15 mg IV Q6HP PRN PRN Reason: SEVERE PAIN Stop: 07/04/18 13:00 Last Admin: 07/01/18 06:11 Dose: 15 mg Ondansetron HCl (Zofran Inj/Pf 4 Mg/2 Ml Sdv) 4 mg IV Q4H PRN PRN Reason: FOR NAUSEA/VOMITING Stop: 07/28/18 21:14 Promethazine HCl (Phenergan 25 Mg Tablet) 25 mg PO Q4HP PRN PRN Reason: FOR NAUSEA/VOMITING Stop: 07/29/18 00:29 Promethazine HCl (Phenergan Inj 25 Mg/1 Ml Vial) 25 mg IV Q4HP PRN PRN Reason: FOR NAUSEA/VOMITING Stop: 07/29/18 00:29 Temazepam (Restoril 15 Mg Capsule) 15 mg PO HSP PRN PRN Reason: SLEEP OR INSOMNIA Stop: 07/06/18 00:29 - Allergies Allergies/Adverse Reactions: hydrochlorothiazide [Hydrochlorothiazide] Allergy (Verified 06/29/18 09:53) SWELLING morphine [Morphine] Allergy (Verified 06/29/18 09:53) Hives Penicillins Allergy (Verified 06/29/18 09:53) Hives rofecoxib [From Vioxx] Allergy (Verified 06/29/18 09:53) SWELLING Sulfa (Sulfonamide Antibiotics) Allergy (Verified 06/29/18 09:53) THROAT ITCHING & BURNING Hospital Course Hospital Course: 63-year-old female history of SLE, presented to the ED after a fall. This happened after she mistakenly stepped on a pumpkin in the dark at the porch with her left lower leg. She twisted the leg and fell on her right knee. In the ED she was found to have left distal fibula fracture and right patella fracture. Patient was admitted to observation status and managed for pain and the fractures were immobilized. Patient was evaluated by orthopedist who recommended the following:. (1) Fracture of distal fibula, Left Plan: Displaced left distal fibula fracture. Transverse under the mortise. Recommend protected weightbearing with walking and ice and elevate when not ambulating. Continue the Aircast until she sees us in the office where we will apply a walking boot. (2) Patella fracture, Right Plan: Nondisplaced lateral facet fracture of the patella on the right knee. is a longitudinal fracture of the lateral facet. No step-off. Patient can ambulate or weight-bear as tolerated with the right lower extremity but unable and restricted from doing range of motion due to the fracture. When she ambulates she is required to use the knee immobilizer. She may loosen or remove the knee immobilizer when and the right knee is straight. Recommend using a walker for ambulation. It was also thought that patient will need rehab. She has been evaluated and accepted for inpatient rehab and is being transferred. She is to follow-up with her primary care physician as well as orthopedist, Dr. Sallie Covington at discharge. Physical Exam Vital Signs: Temp Pulse Resp BP Pulse Ox 98.6 F 67 16 146/61 H 95 07/01/18 00:07 07/01/18 00:07 07/01/18 00:07 07/01/18 00:07 07/01/18 00:07 Intake & Output 06/30/18 07/01/18 07/02/18 06:59 06:59 06:59 Intake Total 1409 785 Balance 1409 785 Weight 89.6 kg GENERAL: Well-developed, well-nourished female, no acute distress HEENT: Normocephalic/atraumatic NECK supple, no JVD CARDIOVASCULAR: RRR, normal S1-S2 LUNGS: CTA bilaterally ABDOMEN: Soft, NT, NL bowel sounds EXTREMITIES: No edema, clubbing, cyanosis; right knee and left ankle immobilizers in place. Distal pulses intact. NEUROLOGICAL: Alert, oriented x 3, grossly nonfocal Results Laboratory Results: 07/01/18 05:40 07/01/18 05:40 07/01/18 07/01/18 05:40 05:40 WBC 3.7 L RBC 4.07 Hgb 12.5 Hct 36.2 MCV 89 MCH 30.6 MCHC 34.5 RDW 12.7 Plt Count 185 Seg Neutrophils % 49.4 Lymphocytes % 37.1 Monocytes % 7.7 Eosinophils % 5.1 Basophils % 0.7 Absolute Neutrophils 1.8 Absolute Lymphocytes 1.4 Absolute Monocytes 0.3 Absolute Eosinophils 0.2 Absolute Basophils 0.0 Sodium 142.2 Potassium 4.3 Chloride 105 Carbon Dioxide 29 Anion Gap 8 BUN 14 Creatinine 0.81 Est GFR ( Amer) > 60 Est GFR (Non-Af Amer) > 60 Glucose 93 Calcium 8.9 Impressions: Knee X-Ray 06/28/18 19:43 IMPRESSION: Possible nondisplaced longitudinal fracture in the lateral body of the patella. Lower Extremity CT 06/28/18 21:09 IMPRESSION: Nondisplaced acute patellar fracture. Moderate degenerative changes with probable loose body calcification in the suprapatellar joint with mild joint effusion. Ankle X-Ray 06/30/18 00:00 IMPRESSION: Unchanged nondisplaced fracture distal fibula.
== END 2018-07-01 10:15 | disposition short-term general hospital (02) ==
LOC: ER 19:33 → EH 06-29 00:37 → 4N 06-29 02:00
PROVIDERS: ADMIT Internal Medicine; ATTEND Internal Medicine
DX: S82.832A Other fracture of upper and lower end of left fibula, initial encounter for closed fracture (principal); S82.024A Nondisplaced longitudinal fracture of right patella, initial encounter for closed fracture; Y92.008 Other place in unspecified non-institutional (private) residence as the place of occurrence of the external cause; X50.1XXA Overexertion from prolonged static or awkward postures, initial encounter; W01.0XXA Fall on same level from slipping, tripping and stumbling without subsequent striking against object, initial encounter; M32.9 Systemic lupus erythematosus, unspecified; R26.89 Other abnormalities of gait and mobility; I10 Essential (primary) hypertension; J44.9 Chronic obstructive pulmonary disease, unspecified; M79.7 Fibromyalgia; M06.9 Rheumatoid arthritis, unspecified; E03.9 Hypothyroidism, unspecified; Z79.82 Long term (current) use of aspirin; Z79.899 Other long term (current) drug therapy
CPT/HCPCS: 99285; 96374; 36415 ×2; 85025 ×2; 80048 ×2; 73610 ×2; 73564; 73700; 97530 ×2; 97110; 97116 ×2; 97163; 97535; 97166; G0378 ×3; L1830; L1902; L4350; A9270 ×4; J1644 ×3; J1885 ×3; G8978; G8979

== ENCOUNTER 2019-03-11 09:42 | Emergency (ER) | payer MEDICARE, OTHER ==
[2019-03-11] MEDS ORDERED: KETOROLAC TROMETHAMINE 60 MG/2 ML SDV IM ONE (10:43)
--- NOTE | 2019-03-11 11:01 | ER Document Report ---
HPI - HPI Time Seen by Provider: 03/11/19 10:29 Pain Level: 5 Notes: Patient is a 63-year-old female presenting to the emergency department chief complaint of right knee pain. Patient reports a large dog ran directly into her knee causing pain. She also reports she has a lot of varicose veins in this area and she is having increasing pain to her veins. She was able to ambulate after the incident. - CONSTITUTIONAL Constitutional: DENIES: Fever, Chills - REPRODUCTIVE Reproductive: DENIES: : - MUSCULOSKELETAL Musculoskeletal: REPORTS: Extremity pain - right knee Past Medical History - General Information source: Patient - Social History Smoking Status: Never Smoker Frequency of alcohol use: None Drug Abuse: None Family History: Reviewed & Not Pertinent Patient has suicidal ideation: No Patient has homicidal ideation: No - Past Medical History Cardiac Medical History: Reports: Hx Hypertension Pulmonary Medical History: Reports: Hx Asthma, Hx COPD, Hx Pneumonia Endocrine Medical History: Reports: Hx Hypothyroidism Renal/ Medical History: Denies: Hx Peritoneal Dialysis GI Medical History: Reports: Hx Gastroesophageal Reflux Disease Musculoskeletal Medical History: Reports Hx Arthritis, Reports Hx Fibromyalgia Past Surgical History: Reports: Hx Hysterectomy, Hx Orthopedic Surgery - L arm Vertical Provider Document - CONSTITUTIONAL Notes: PHYSICAL EXAMINATION: GENERAL: Well-appearing, well-nourished and in no acute distress. HEAD: Atraumatic, normocephalic. EYES: Pupils equal round extraocular movements intact, conjunctiva are normal. ENT: Nares patent NECK: Normal range of motion LUNGS: No respiratory distress Musculoskeletal: Normal range of motion, swelling to right knee specifically on the lateral aspect, palpable popliteal pulse, normal sensation distal to injury. NEUROLOGICAL: Normal speech, normal gait. PSYCH: Normal mood, normal affect. SKIN: Warm, Dry, normal turgor, no rashes or lesions noted. - INFECTION CONTROL TRAVEL OUTSIDE OF THE [place] IN LAST 30 DAYS: No Course - Re-evaluation Re-evalutation: X-rays are negative for any acute findings. Patient will be placed in Arsh wrap, patient declined crutches. Patient will be discharged home in stable condition, plan to ice, elevate and follow-up with PCP or orthopedics if not improving. The patient's emergency department workup and current diagnosis were explained to the patient and or family. Follow-up instructions were provided. Medications if prescribed were discussed. Instructions for when to return to the emergency department including specific worrisome symptoms were discussed with the patient and/or family. Procedures - Immobilization Right knee Pre-Proc Neuro Vasc Exam: Normal Immobilizer type: Arsh wrap Performed by: PCT Post-Proc Neuro Vasc Exam: Normal Alignment checked and good: Yes Discharge - Discharge Clinical Impression: Knee effusion, right Contusion of right leg Qualifiers: Encounter type: initial encounter Qualified Code(s): S80.11XA - Contusion of right lower leg, initial encounter Condition: Stable Disposition: HOME, SELF-CARE Additional Instructions: Knee Effusion You have a fluid collection in the knee joint, called an effusion. This fluid build up can occur from irritation of the synovial membrane lining the knee joint or from a more serious injury to the knee. Irritation of the membra ne can occur from excessive, repetitive knee activitiy, like kneeling or squatting for extended periods or even just excessive walking, jogging, or skiing. Effusions also can occur with infections in the joint and with some arthritic conditions, especially gout. Fluid collections in these situations are usually yellow in color and either clear or cloudy in appearance. Significant injury to the knee can result in fluid collection which is partly or entirely blood and this condition is known as a hemarthrosis of the knee joint. If the fluid collection is not too large and/or painful, it can be managed conservatively with rest, ice packs, and anti-inflammatory and pain medications as needed. If the fluid collection is large and very painful, the knee joint can be drained (aspirated) by a relatively minor procedure of inserting a needle in the joint and removing some or all of the fluid present. If your knee was aspirated, you should rest it as much as possible for a few days, keep a pressure dressing around the knee and apply ice packs for at least 48 - 72 hours. If there are signs of developing infection such as heat and redness of the knee, fever, etc. you should return immediately for a recheck. Contusion Your injury has resulted in a contusion -- a crushing of the deep tissues. No injury to important structures was detected during the physician's exam. C ontusions vary in the amount of pain they cause, and in the length of time required for healing. Typically, the area will become bruised, and will remain painful to touch for two or three weeks. However, most patients are back to working and playing within a few days. After the initial period of rest and cold-packs, your symptoms (together with the doctor's recommendations) will determine how rapidly you can get back to full activity. Usually this means "do what feels okay, but don't do things that hurt." If re-examination was recommended, it's important to follow up as instructed. Call the doctor or return any time if pain increases, if swelling becomes severe, if you develop numbness or weakness in an injured extremity, or if any other alarming symptoms occur. Ice & Elevation Apply ice packs frequently against the painful area. Many different schedules are recommended, such as "20 minutes on, 20 minutes off" or "one hour ice, two hours rest." If you need to work, you may need to go longer between ice treatments. You should plan to have the area ice packed AT LEAST one-fourth of the time. The ice should be applied over the wrap, tape, or splint, or over a layer of cloth -- not directly against the skin. Some ice bags have a built-in cloth and can be put directly on the skin. Your injured part should be elevated as much as possible over the next 48 hours. Try to keep the injury above the level of the heart. Avoid use of the injured area. Elevation and rest will decrease the swelling. Ibuprofen Ibuprofen is an excellent, safe drug for pain control. In addition, it has potent antiinflammatory effects which are beneficial, especially in the treatment of injuries, arthritis, or tendonitis. It's best to take ibuprofen with food. Persons with ulcer disease or allergy to aspirin should notify their physician of this before taking ibuprofen. Take the medication exactly as prescribed. Don't take additional doses unless instructed to do so by your doctor. If you develop wheezing, shortness of breath, hives, faintness, stomach pain, vomiting, or dark black stools, return for re-evaluation at once. The x-rays were negative for any fracture or dislocation. There is a joint effusion noted which is described above. Please take ibuprofen [id number] as directed to help with pain and inflammation. Pain does not gradually decrease over the next couple of days I would like you to follow-up with orthopedics. I have included their number below. Prescriptions: Hydrocodone Bit/Acetaminophen [Hydrocodon-Acetaminophen 5-325] 1 each PO Q4H #10 tablet Referrals: TIEN PEREZ MD [ACTIVE STAFF] - Follow up as needed
--- NOTE | 2019-03-11 11:27 | RADIOLOGY REPORT (SQ) ---
EXAM DESCRIPTION: KNEE RIGHT 4 VIEWS COMPLETED DATE/TIME: 03/11/2019 11:06 am REASON FOR STUDY: right knee injury COMPARISON: None. NUMBER OF VIEWS: Four views. TECHNIQUE: AP, lateral, and both oblique radiographic images acquired of the right knee. LIMITATIONS: None. FINDINGS: MINERALIZATION: Osteopenia. BONES: No acute fracture or dislocation. No worrisome bone lesions. JOINT: Small effusion. Mild moderate degenerative compromise medial joint compartment. Severe degen erative narrowing patellofemoral joint SOFT TISSUES: No soft tissue swelling. No radio-opaque foreign body. Bursal calcification OTHER: No other significant finding. IMPRESSION: No acute posttraumatic changes. Possible small joint effusion. Degenerative changes as described above. TECHNICAL DOCUMENTATION: JOB ID: [id number] [employer]- All Rights Reserved Reading location - IP/workstation name: [email or web address]
[2019-03-11 12:31] VITALS: BP 198/98
== END 2019-03-11 11:58 | disposition home or self-care (01) ==
LOC: ER 09:42
DX: S80.11XA Contusion of right lower leg, initial encounter (principal); M25.461 Effusion, right knee; M25.561 Pain in right knee; W22.8XXA Striking against or struck by other objects, initial encounter; I10 Essential (primary) hypertension; J44.9 Chronic obstructive pulmonary disease, unspecified
CPT/HCPCS: 99283; 96372; 73564; J1885

== ENCOUNTER 2019-10-09 09:57 | Emergency (ER) | payer MEDICARE, OTHER ==
[2019-10-09 10:22] LABS: ABSOLUTE EOSINOPHILS # (AUTO) 0.2 10^3/uL (0.0-0.6); ABSOLUTE LYMPHOCYTES (AUTO) 1.3 10^3/uL (0.5-4.7); ABSOLUTE MONOCYTES (AUTO) 0.3 10^3/uL (0.1-1.4); ABSOLUTE NEUT (AUTO) 2.2 10^3/uL (1.7-8.2); EOSINOPHILS % (AUTO) 4.3 % (0-6); HEMATOCRIT 43.2 % (36.0-47.0); HEMOGLOBIN 14.5 g/dL (12.0-15.5); LYMPHOCYTES % (AUTO) 32.1 % (13-45); MEAN CORPUSCULAR HGB CONC 33.5 g/dL (32.0-36.0); MEAN CORPUSCULAR VOLUME 90 fl (80-97); MONOCYTES % (AUTO) 7.6 % (3-13); PLATELET COUNT 214 10^3/uL (150-450); RED BLOOD COUNT 4.82 10^6/uL (3.72-5.28); RED CELL DISTRIBUTION WIDTH 12.8 % (11.5-14.0); TOTAL CELLS COUNTED % (AUTO) 100 %
--- NOTE | 2019-10-09 10:25 | EKG REPORT ---
SEVERITY:- BORDERLINE ECG - SINUS RHYTHM WITH PACS BORDERLINE LEFT AXIS DEVIATION LA ENLARGEMENT : Confirmed by: Zackery Munoz MD 09-Oct-2019 10:24:48
--- NOTE | 2019-10-09 10:34 | RADIOLOGY REPORT (SQ) ---
EXAM DESCRIPTION: CHEST SINGLE VIEW COMPLETED DATE/TIME: 10/09/2019 10:24 am REASON FOR STUDY: chest pain COMPARISON: 2010. NUMBER OF VIEWS: One view. TECHNIQUE: Single frontal radiographic view of the chest acquired. LIMITATIONS: None. FINDINGS: LUNGS AND PLEURA: No opacities, masses or pneumothorax. No pleural effusion. MEDIASTINUM AND HILAR STRUCTURES: No masses. Contour normal. HEART AND VASCULAR STRUCTURES: Heart normal in size. Normal vasculature. BONES: No acute findings. HARDWARE: None in the chest. OTHER: No other significant finding. IMPRESSION: NO SIGNIFICANT RADIOGRAPHIC FINDING IN THE CHEST. TECHNICAL DOCUMENTATION: JOB ID: [id number] 2010 [employer]- All Rights Reserved Reading location - IP/workstation name: [email or web address]
[2019-10-09] MEDS ORDERED: AMLODIPINE BESYLATE 5 MG TABLET PO ONE (10:36)
[2019-10-09 10:43] LABS: ALBUMIN 4.3 g/dL (3.5-5.0); ALKALINE PHOSPHATASE 113 U/L (38-126); ANION GAP 11 (5-19); ASPARTATE AMINO TRANSFERASE 23 U/L (14-36); BILIRUBIN,DIRECT 0.2 mg/dL (0.0-0.4); BILIRUBIN,TOTAL 1.3 mg/dL (0.2-1.3); BLOOD UREA NITROGEN 14 mg/dL (7-20); CALCIUM 9.6 mg/dL (8.4-10.2); CARBON DIOXIDE 27 mmol/L (22-30); CHLORIDE 104 mmol/L (98-107); CREATINE KINASE 110 U/L (30-135); GLUCOSE 90 mg/dL (75-110); POTASSIUM 4.3 mmol/L (3.6-5.0); TOTAL PROTEIN 7.6 g/dL (6.3-8.2)
[2019-10-09 10:54] LABS: CREATINE KINASE MB 1.96 ng/mL (<4.55)
[2019-10-09 11:05] LABS: TROPONIN I < 0.012 ng/mL
--- NOTE | 2019-10-09 12:38 | ER Document Report ---
ED Cardiac - General Chief Complaint: Chest Pain Stated Complaint: CHEST PAIN Time Seen by Provider: 10/09/19 10:18 Primary Care Provider: ROZ FRANCOIS MD [Primary Care Provider] - Follow up in 3-5 days Notes: The patient is a 64-year-old female who presents to the emergency department with chest pain. Her pain started yesterday and would come and go. She states that she feels like her chest is "broken." Patient is supposed to be taking losartan 100 mg and amlodipine 5 mg daily. She is also supposed to be on Lasix. She attempted to take Advil, but states that has only helped a little bit. She was taking 800 mg 3 times a day. TRAVEL OUTSIDE OF THE [place] IN LAST 30 DAYS: No - Related Data Allergies/Adverse Reactions: hydrochlorothiazide [Hydrochlorothiazide] Allergy (Verified 10/09/19 11:43) SWELLING morphine [Morphine] Allergy (Verified 10/09/19 11:43) Hives Penicillins Allergy (Verified 10/09/19 11:43) Hives rofecoxib [From Vioxx] Allergy (Verified 10/09/19 11:43) SWELLING Sulfa (Sulfonamide Antibiotics) Allergy (Verified 10/09/19 11:43) THROAT ITCHING & BURNING Past Medical History - Social History Smoking Status: Unknown if Ever Smoked Family History: Reviewed & Not Pertinent Patient has suicidal ideation: No Patient has homicidal ideation: No - Past Medical History Cardiac Medical History: Reports: Hx Hypertension Pulmonary Medical History: Reports: Hx Asthma, Hx COPD, Hx Pneumonia Endocrine Medical History: Reports: Hx Hypothyroidism Renal/ Medical History: Denies: Hx Peritoneal Dialysis GI Medical History: Reports: Hx Gastroesophageal Reflux Disease Musculoskeletal Medical History: Reports Hx Arthritis, Reports Hx Fibromyalgia Past Surgical History: Reports: Hx Appendectomy, Hx Hysterectomy, Hx Orthopedic Surgery - L arm Review of Systems - Review of Systems Notes: REVIEW OF SYSTEMS: CONSTITUTIONAL : Denies recent illness. Denies recent unintentional weight loss. Denies fever, chills, or sweats. EENT: Denies eye, ear, throat, or mouth pain, discharge, or symptoms. Denies nasal or sinus congestion. CARDIOVASCULAR: See HPI. RESPIRATORY: Denies shortness of breath, cough, congestion, difficulty breathing, or wheezing. GASTROINTESTINAL: Denies nausea, vomiting, and diarrhea. Denies abdominal pain. Denies constipation. GENITOURINARY: Denies difficulty urinating, burning, blood in urine, urgency or frequency. MUSCULOSKELETAL: Denies neck and back pain. Denies joint pain or swelling. SKIN: Denies rash, itchiness, or lesions HEMATOLOGIC : Denies easy bruising or bleeding. LYMPHATIC: Denies swollen, painful, enlarged glands. NEUROLOGICAL: Denies no numbness or tingling denies weakness. Denies headache. Denies altered mental status. Denies alteration in speech. PSYCHIATRIC: Denies stress, anxiety, alteration in sleep patterns, or depression. All other systems reviewed and negative. Physical Exam - Vital signs Vitals: Resp Pulse Ox 16 100 10/09/19 10:13 10/09/19 10:13 - Notes Notes: PHYSICAL EXAMINATION: GENERAL: Appears well, healthy, well-nourished, no acute distress. HEAD: Normocephalic, atraumatic. EYES: PERRL, conjunctiva normal, all extraocular movements intact, sclera nonicteric ENT: Moist mucous membranes. NECK: Supple, no noticeable swelling, redness, rash. Normal range of motion. LUNGS: Equal breath sounds bilaterally and clear to auscultation. No wheezes rales or rhonchi. CARDIOVASCULAR: S1-S2, regular rate, regular rhythm. Radial pulses 2+, normal. Pain reproducible upon palpation of anterior chest. ABDOMEN: Normoactive bowel sounds. Soft, nontender, no guarding, no rebound tenderness, and no masses palpated. EXTREMITIES: Normal strength and range of motion, no pitting or edema. No cyanosis. NEUROLOGICAL: Moves all extremities upon command. Strength 5/5 in all extremities. PSYCH: Normal mood, normal affect. SKIN: Warm, dry. No rash, lesions, ulcerations noted. Normal skin turgor. Course - Re-evaluation Re-evalutation: 10/09/19 12:48 Hematology and chemistries are unremarkable. Troponin is negative. Patient does have tenderness upon palpation of her anterior chest, making this more of a costochondritis type chest pain. Patient will follow-up with her primary care provider. Advised her to continue her blood pressure medication, as she has not been taking these. Patient also admits to drinking 2 cans of Mountain Dew a day. I told her to cut back on her caffeine intake. She is in agreement with t his plan. Follow-up precautions were given. Verbal discharge instructions were given to the patient. They verbalized understanding. They are stable for discharge. - Vital Signs Vital signs: Temp Pulse Resp BP Pulse Ox 97.6 F 16 173/85 H 100 10/09/19 10:34 10/09/19 10:13 10/09/19 10:18 10/09/19 10:17 - Laboratory Result Diagrams: 10/09/19 09:30 10/09/19 09:30 Discharge - Discharge Clinical Impression: Chest pain Qualifiers: Chest pain type: unspecified Qualified Code(s): R07.9 - Chest pain, unspecified Condition: Stable Disposition: HOME, SELF-CARE Additional Instructions: You were seen today in the emergency department for chest pain. Your work-up today is normal. Your blood pressure improved with your blood pressure medication. Tonight, please take your losartan. Tomorrow start your losartan in the morning and take your amlodipine at night. Please make sure you are taki ng your Lasix as prescribed. These medications will help prevent you a heart attack or stroke. For your pain, you can take ibuprofen (Advil) 600 mg and acetaminophen (Tylenol) 1000 mg every 6 hours. Please follow-up with your primary care provider in regards to this visit. It may also help to talk to a counselor about your recent loss of your parents. Referrals: ROZ FRANCOIS MD [Primary Care Provider] - Follow up in 3-5 days
[2019-10-09 13:06] VITALS: BP 168/80
== END 2019-10-09 12:55 | disposition home or self-care (01) ==
LOC: ER 09:57
DX: R07.9 Chest pain, unspecified (principal); I10 Essential (primary) hypertension; T46.5X6A Underdosing of other antihypertensive drugs, initial encounter; T46.1X6A Underdosing of calcium-channel blockers, initial encounter; T50.1X6A Underdosing of loop [high-ceiling] diuretics, initial encounter; Z91.14 Patient's other noncompliance with medication regimen; J44.9 Chronic obstructive pulmonary disease, unspecified; Z88.8 Allergy status to other drugs, medicaments and biological substances; Z88.6 Allergy status to analgesic agent; Z88.0 Allergy status to penicillin; Z88.2 Allergy status to sulfonamides
CPT/HCPCS: 93005; 99285; 36415; 82553; 82550; 85025; 80053; 84484; 71045; 93010; A9270